=== PATIENT | male | born 1945 | race Caucasian/White ===

== ENCOUNTER 2025-01-18 22:26 | Emergency (ER) | payer MEDICARE, OTHER ==
[2025-01-18] MEDS: methylPREDNISolone Sodium Succinate 40 MG/1 ML SDV IM ONE (23:03)
== END 2025-01-18 23:10 | disposition home or self-care (01) ==
LOC: JP.ED 22:26
DX: T63.441A Toxic effect of venom of bees, accidental (unintentional), initial encounter (principal); Z87.891 Personal history of nicotine dependence
CPT/HCPCS: 96372; 99283; A9270; J2919